=== PATIENT | female | born 1935 | race Caucasian/White ===

== ENCOUNTER → 2016-07-13 | Outpatient (CLI) | payer MEDICARE ==
[~2016-07-13] MED LIST: ALPRAZOLAM0.5 MG PO; BACITRACIN OP3.5 GM; CARAFATE PO; CARAFATE1 G PO; CARDIZEM CD; CORDARONE200 M1 PO; DEXILANT60 MG PO; DICLOFENAC; DILTIAZEM 24HR120 M1 PO; ELIQUIS2.5 MG PO; ESCITALOPRAM OX10 MG PO; EVISTA60 M1 PO; EVISTA60 MG; HYDROCODONE-APA1 T43 PO; HYDROCODONE/APA1 T16 PO; LISINOPRIL10 MG PO; LISINOPRIL20 MG PO; LORTAB 7.5-5001 TAB PO; MAGIC MOUTHWASH; MOBIC15 MG PO; MULTI-VITAMIN1 EAC1 PO; OMEPRAZOLE40 M1 PO; PHENERGAN25 MG PO; PRESERVISION A1 EAC1; PRILOSEC20 MG PO; PROBIOTIC1 EAC1 PO; RAYOS2 MG PO; SIMVASTATIN20 MG PO; SIMVASTATIN5 MG PO; TRAMADOL HCL50 M2 PO; VAGIFEM25 MCG; VITAL-D RX TABL1 TAB PO; VITAMIN D34000 UNIT PO; XANAX0.5 MG PO; ZOLOFT
--- NOTE | ~2016-07-13 | NM19 ---
[facility] A Service of [facility] RADIOLOGY TEXT RESULTS PATIENT: DAMION GREENBERG LOCATION: [facility] : 39 UNIT #: [id number] AGE: [address]: David Liu MD SEX: F ORDER DR: [id number] [facility] [address]. [place], [place] [address] [id number] O MR#: [id number] Acc #: [id number] NAME: DAMION GREENBERG : 1935 SEX: F STUDY DATE/TIME: 07/13/2016 9:08 UNIT: [facility] ROOM: STUDY DESCRIPTION: [place] Gastric Emptying Study Attending Physician: David Liu M.D. Referring Physician: David Liu M.D. Ordering Physician: David Liu M.D. Primary Care Physician: Arlene Garcia M.D. MEDICAL IMAGING REPORT This report is preliminary unless electronic signature is present EXAM Nuclear medicine gastric emptying scan, solid phase, 07/13/16 HISTORY Nausea, constipation, gastroesophageal reflux disease, acid reflex, low abdomen pain, difficulty swallowing, upper scope found her esophagus is not straight, feels like food gets caught in chest and has to gag and make herself vomit. Symptoms since last year. Has been on hydrocodone since 2008 after knee replacement, spinal stenosis, recent diagnosis Parkinson's disease, cholecystectomy 3 years ago. Bladder surgery. Hysterectomy. No history of cancer. Following ingestion of 480 microcuries Tc-99m sulfur colloid admixed in scrambled eggs, anterior and posterior views of the abdomen were obtained at 0, 60, 120, 240 minutes post ingestion. Region of interest drawn around stomach and time activity curve constructed. Percent remaining at time intervals as follows: 60 minutes - 65%, 120 minutes - 54%, 240 minutes - 32%. Percent empty at time intervals as follows 60 minutes - 35%, 120 minutes - 46%, 240 minutes - 67%. IMPRESSION Two hour solid phase gastric emptying is 46%. Normal is greater than 60%. Four hour solid phase gastric emptying is 67%, normal is greater than 90%. Dictated by... Greg Jerez M.D. THIS IS AN ELECTRONICALLY VERIFIED REPORT Greg Jerez M.D. at 07/18/2016 6:37 PM KEL/jesus [facility]. [facility] A Service of [facility] RADIOLOGY TEXT RESULTS PATIENT: DAMION GREENBERG LOCATION: [facility] : 39 UNIT #: [id number] AGE: [address]: David Liu MD SEX: F ORDER DR: TD: 07/13/2016 14:30 JOB #: [id number] MEDICAL IMAGING REPORT Page 1 of 1 COPY
== END | disposition home or self-care (01) ==
LOC: CNUC 07:22
DX: K44.9 Diaphragmatic hernia without obstruction or gangrene (principal); K29.70 Gastritis, unspecified, without bleeding; R11.0 Nausea; R13.10 Dysphagia, unspecified; K30 Functional dyspepsia; R14.2 Eructation
CPT/HCPCS: 78264; A9541